=== PATIENT | female | born 1965 | race Two or more races ===

== ENCOUNTER 2024-11-15 13:49 | Emergency (ER) | payer SELFPAY ==
[2024-11-15] MEDS: Lidocaine 1% with EPINEPHrine 1:100,000 20 ML MDV INJECT ONE (14:55)
== END 2024-11-15 15:00 | disposition home or self-care (01) ==
LOC: JP.ED 13:49
DX: S61.011A Laceration without foreign body of right thumb without damage to nail, initial encounter (principal); W26.8XXA Contact with other sharp object(s), not elsewhere classified, initial encounter
CPT/HCPCS: 99282; J2004; 12002; 99283